=== PATIENT | female | born 1970 | race Caucasian/White ===

== ENCOUNTER 2020-05-10 05:42 | Inpatient (IN) | payer SELFPAY, OTHER ==
--- NOTE | 2020-05-05 08:55 | EKG12_ITS ---
Test Reason : PRE OP Blood Pressure : / mmHG Vent. Rate : 062 BPM Atrial Rate : 062 BPM P-R Int : 140 ms QRS Dur : 088 ms QT Int : 388 ms P-R-T Axes : 000 033 017 degrees QTc Int : 393 ms Normal sinus rhythm Low voltage QRS Borderline ECG Confirmed by ANIYA NELSON, HUAN ([id number]), scientific publications editor VINICIO WHARTON ([id number]) on 05/06/2020 12:24:46 PM Referred By: Raul Gilbert Confirmed By:DAKOTAH KWAN MD
[2020-05-05 10:50] LABS: Hematocrit 39.5 % (37-47); Hemoglobin 12.7 g/dL (12.0-15.0); Mean Corp Hgb Conc 32.2 g/dL (32-36); Mean Corpuscular Hgb 29.3 pg (27.0-32.0); Mean Corpuscular Volume 91.2 fL (81-99); Mean Platelet Vol. 9.4 fl (6.2-12.0); Platelet Count 292 K/mm3 (150-450); RBC Distribution Width CV 13.7 % (11.6-14.6); RBC Distribution Width SD 46.7 fl (35.1-43.9); Red Blood Count 4.33 M/mm3 (4.2-5.4); White Blood Count 5.4 K/mm3 (4.4-11.0)
[2020-05-05 10:56] LABS: Prothrombin Time (Protime)PT. 12.3 SECONDS (11.7-14.9)
[2020-05-05 10:57] LABS: Partial Thromboplast Time 33.2 Seconds (24.1-36.2)
[2020-05-05 11:05] LABS: Internal QC Validated? YES +Cl - CLEAR BKGD; Pregnancy, Serum, hCG Quali. NEGATIVE Negative
[2020-05-05 11:26] LABS: Creatinine, Serum 0.72 mg/dL (0.55-1.02); EST Glomerular Filtration Rate 91 mL/min (>60); Est Glom Filt Rate - Afr Amer 110 mL/min (>60); Thyroid Stim Hormone (TSH) 0.09 uIU/mL (0.358-3.74)
[2020-05-05 13:26] LABS: Magnesium 2.4 mg/dL (1.6-2.6)
--- NOTE | 2020-05-09 20:15 | PCM.HP.BLA ---
History and Physical Date of Admission: 05/10/20 Surgical History and Physical Yoana Chatterjee, a 50 year old female 0 0 0 0 0, presents for SOLO/BS on May 10, 2020 at 10:00. -- Large Uterine Fibroids -- Yoana is here today for concerns regarding uterine fibroids. Patient states that she was seen by her PCP and noted to be having difficulty urinating a couple days prior to menses starting and felt that sx are getting worse. Patient recently had a neck mass and thyroid removed 03/17/2020. Patient is not and states that she never has been sexually active. Fibroids which began 2 years ago. Yoana claims it started gradual and has been present 2 years. It occurs intermittantly. It is located in the na. Yoana characterizes it to be non-radiating. Severity is worsening. Associated signs and symptoms are bloating, stress incontinence. Additional comments are: patient states that prior to starting menses x couple days has difficulty urinating. MEDICATIONS HISTORY: Patient is also takin. levothyroxine 137 mcg tablet, 1 PO QD ALLERGIES: No Known Drug Allergies Infections - Chicken pox Illnesses - thyroid mass Accidents - None Hospitalizations - see surgery only one pap in her 20's; Review of Systems: GENERAL - Denies fever, or chills SKIN - Denies skin changes EYES - Denies visual changes EARS - Denies difficulty hearing NOSE - Denies nasal congestion or bleeding MOUTH - Denies sore throat or difficulty swallowing NECK - Denies pain or swelling RESPIRATORY - Denies shortness of breath or wheezing CARDIOVASCULAR - Denies palpitations or chest pain GASTROINTESTINAL - Denies nausea, vomiting, diarrhea, constipation GENITOURINARY - Denies dysuria, frequency of urination, incontinence of urine MUSCULOSKELETAL - Denies joint or muscle pain NEUROLOGICAL - Denies localized numbness or weakness PSYCHIATRIC - Denies depression or anxiety ENDOCRINE - Denies heat or cold intolerance, weight loss or gain HEMATO-IMMUNOLOGIC - Denies excesive bleeding with cuts SOCIAL HISTORY: Alcohol Use - denies drinking Smoking - denies smoking Diet - no special diet Lifestyle - single Exercise - active Seat Belt Use - always Employer - stays at home Illicit Drug Use - denies use of street drugs Sexual Activity - sexually inactive Residence - lives alone Control - not active FAMILY HISTORY: MENSTRUAL HISTORY: LMP Known?- DefiniteAmount/Duration - 3 days, Regularity - regular, Frequency - monthly days, LMP - 05/02/20, Age Onset Menarche - 13 PAST PREGNANCIES: Total Pregnancies - 0; Full Term Pregnancies - 0; Premature - 0; Abortions, Induced - 0; Abortions, Spontaneous - 0; Ectopics - 0; Multiple Births - 0; Living Children - 0 SURGICAL HISTORY: 1. 03/17/2020 neck mass 2. 03/17/2020 thyroid removed PHYSICAL EXAM BP- 116/72 Sitting, Right arm, regular cuff Weight- 212.52931 lbs Height- 60.5 inch BMI:40.81 CONSTITUTIONAL - NAD, well nourished, and well developed SKIN - No rash, lesions, or ulcers HEENT - Normocephalic, PERRLA, EOMI NECK - No nodes, no nuchal rigidity and thyroid normal size and texture LYMPH NODES - Palpation of lymph nodes in neck and groins within normal limits LUNGS - CTA x2 without wheezes, crackles or rales CARDIAC - Regular rate and rhythm without rubs, murmurs, or gallops ABDOMEN - Without hepatosplenomegaly, distention, masses, rebound, or guarding; normal bowel sounds; no hernias and 18 cm lower pelvic mass noted EXTREMITIES - No edema or calf tenderness NEUROLOGICAL - Cranial nerves II-XII grossly intact PSYCHIATRIC - A and O to time, place, person, mood and affect ASSESSMENT/PLAN: 1. Uterine Leiomyoma Unspec Large and symptomatic. U/S confirms likely fibroid however cannot see ovaries due to large size. Discussed options for treatment and plan to proceed with SOLO/BS. Discussed RBAs and all questions answered.
[2020-05-10] VITALS (14 sets, daily range): BP systolic 109–153; BP diastolic 50–80; PULSE 57–92; RESP 16–18; TEMP 36.2–37.4; O2SAT 93–100; BMI 41.3
--- NOTE | 2020-05-10 | HYST_PTH ---
PATIENT: VIVIAN POP LOC: MS3 U#:[id number] AGE/SX: 50/F ROOM: [facility] [place] RE05/10/[address]: Dr. Raul Gilbert MD : 1970 BED: 1 DIS: 05/11/2020 SPEC #: [id number] RECD: 05/10/20 09:46 STATUS: ALMITA RECandice #: [id number] CONCHITA: 05/10/20 00:[address]: Raul Gilbert DEPT: SURGICAL PATHOLOGY RECD BY: Bob Lamar ENTERED: 05/10/20 09:46 SP TYPE: HYSTERECT OTHR DR: Bonita Tong, RETAIL AND PROMOTIONS COORDINATOR-C Tissues: Uterus, NOS Procedures: Surgery Specimen Level V HEADER OPERATION: Hysterectomy, SOLO, salpingectomy PRE-OP DIAGNOSIS: Uterine leiomyoma TISSUE SUBMITTED: Uterus and bilateral tubes MICROSCOPIC DIAGNOSIS Uterus and bilateral fallopian tubes, total abdominal hysterectomy and bilateral salpingectomy: Cervix - mild chronic inflammation. See comment. Endometrium - proliferative endometrium. Myometrium - intramural and subserosal leiomyomas (largest measuring 8 cm in greatest dimension). Bilateral fallopian tubes - no pathologic diagnosis. SJ:rg 05/11/2020 COMMENT Ectocervix mucosa is not seen in the specimen. MICROSCOPIC DESCRIPTION Slides are reviewed. GROSS DESCRIPTION Received in fixative is one container labeled with the patient's name and designated uterus and bilateral fallopian tubes. The specimen consists of a hysterectomy specimen consisting of uterus with attached bilateral fallopian tubes and detached cervix. The body of the uterus is markedly deformed due to the presence of multiple subserosal nodular masses. The uterus could not be oriented due to distortion of the body of the uterus due to multiple nodules. The uterus with cervix weighs 955 gm. The detached cervix measures 4 x 3 x 1.5 cm. The ectocervical mucosa appears to be absent. The endocervical canal measures 3.5 cm in length. The endocervical mucosa is husain, glistening and unremarkable. The uterus without cervix measures 17 x 15 x 9 cm. The serosal surface is husain, glistening. The triangular endometrial cavity measures 6 cm in length and 2 cm in width. This compresses to one side. The endometrium is husain, glistening without any mass lesion and measures 0.1 cm in thickness. Sections of the uterine wall reveal multiple nodular masses. The largest nodular mass measures 8 cm in greatest dimension. Sections of these masses reveal husain whorled cut surfaces without areas of hemorrhage, necrosis or cystic degeneration. The uninvolved uterine wall measures up to 4 cm in thickness. Sections of the largest nodular also reveal focal degenerative changes. The fallopian tubes measure 7.5 cm in length and 0.6 cm in diameter and 6 cm in length and 0.6 cm in diameter. Due to distorted nature of the uterus, the fallopian tubes could not be oriented. Both fallopian tubes contain fimbrial end. Sections reveal unremarkable cut surfaces. Field Naturalist sections are submitted in 12?cassettes as follows: 1 & 2 - cervix, 3-6 - uterine wall including endometrium, 7 - largest nodular mass, 8 - second largest nodular mass, 9 & 10 - smaller nodular masses, 11 & 12 - bilateral fallopian tubes with each cassette containing one fallopian tube. / DEREK:chadd 05/10/20 TC: 1 CPT: 77086
[2020-05-10 06:31] LABS: Bedside Glucose 84 mg/dL (70-110)
[2020-05-10 06:35] LABS: Internal QC Validated? YES +Cl - CLEAR BKGD; Pregnancy, Urine Negative Negative
[2020-05-10] MEDS: Lactated Ringers 1,000 ML 40 ML IV ×2 (06:56→09:00)
[2020-05-10] MEDS: Gabapentin 600 MG Tablet PO (06:57)
[2020-05-10] MEDS: Acetaminophen 500 MG Tablet 1000 MG PO ×2 (06:57→18:10)
[2020-05-10] MEDS: Cefazolin 2 GM in 0.9% Normal Saline 100 ML IV (07:23)
--- NOTE | 2020-05-10 07:40 | PCM.OPRPT ---
Report of Operation Date of Procedure: 05/10/20 Pre-Operative Diagnosis: Symptomatic Uterine Fibroids Post-Operative Diagnosis: Symptomatic Uterine Fibroids Surgery/Procedure Performed:: Total Abdominal Hysterectomy and Bilateral Salpingectomy Description of Surgical Findings:: 16 cm uterus with normal-appearing fallopian tubes and ovaries production administrator: Kelly Coombs Type of Anesthesia:: General - Endotracheal Anesthesiologist: Lisha Blake Specimen's removed: Uterus and bilateral fallopian tubes Drains: To straight drain Estimated Blood Loss (mL): 100 cc Fluids Replaced: Crystalloid Description of Procedure: Surgeon: Raul Gilbert MD, FACOG Procedure: Total Abdominal Hysterectomy, Bilateral Salpingectomy Findings: 16 cm fibroid uterus with normal appearing fallopian tubes and ovaries Indications: This is a 50-year-old patient who his been having problems with symptomatic uterine fibroids. Given this the patient desires that we proceed with the above procedure. She has been counseled regarding the risk and indications of this procedure including the possibility of bleeding, infection, and injury to surrounding structures such as bowel bladder. All questions were answered. Procedure: Patient was taken to the operating room where after induction of general anesthesia she was prepped and draped in the usual sterile fashion. A Ruby catheter was placed. The abdomen was entered through a Pfannenstiel incision and peritoneal cavity was entered bluntly. Mesosalpinx were ligated x2. Round ligaments were identified and ligated with 0 Vicryl suture. A bladder flap was developed and progressive bites were then taken down on either side of the uterine cervix ligating each pedicle with 0 Vicryl suture. Stryker retractor was then able to be placed. The cervix was bisected and uterus removed with remaining cervical stump present. Further bites were taken along the uterine cervix and final bites across the vaginal cuff incorporated the uterosacral ligaments into the vaginal cuff using 0 Vicryl suture and multiple [id number] sutures were placed across the vaginal cuff. Vaginal cuff and pelvic sidewall pedicles were oversewn where necessary to achieve hemostasis. Peristalsis of the right ureter was noted. Pelvis was copiously irrigated removing all clot. Stryker retractor was removed and rectus abdominis muscles were reapproximated in the midline with interrupted 0 Vicryl suture. 0 PDS strata fix was used to close the fascia in a running fashion and subcutaneous tissue was copiously irrigated with saline solution before closing with 3-0 Vicryl suture. 3-0 Monocryl suture was then used in running fashion to reapproximate skin edges area and Steri-Strips and a Mepilex dressing were placed across the incision. Patient tolerated the procedure well was taken to recovery room in satisfactory condition; sponge instrument and needle counts were all reportedly correct. Estimated blood loss for the case was 100 cc. Ancef 2 g IV was given prior to beginning the operative procedure. There were no apparent complications of the surgery. Specimen to pathology was uterus and bilateral fallopian tubes. Grafts/Implants Used: None - Complications None - Admit VTE Documentation VTE Present on Admission: Yes VTE Mechan Device Prophylaxis: SCD's VTE Pharm Prophylaxis ordered?: Yes
--- NOTE | 2020-05-10 07:43 | PCM.DC.AHY ---
Discharge Diet: No Restrictions Discharge Activity: Return to Normal Activity - do what you feel comfortable, but do not over do it. You may climb stairs, just use caution and hold the railing., May Not Drive - for a few days or while taking narcotic pain medications., May Shower, May Take a Tub Bath May resume sexual activity in: 6 weeks - nothing in the vagina. Lifting Restrictions: 25 pounds for 6 weeks. Call your doctor if your incision/area has: Continuous Slow Oozing, Sudden Increased Bleeding, Increased Pain/ Swelling, Increased Redness, Foul Smelling Discharge Call your doctor if you observe: Fever of 101 or Higher, Inability to urinate, Inability to have a bowel movement, Using more than one pad per hour, - - Some vaginal bleeding may be noted for up to 4-8 weeks. Cleanse incision/area with: - - Let the soapy water run over your incision, rinse and pat dry. Additional Dressing/Incision Instructions:: The white strips (Steri Strips) on your incision will fall off on their own. Allergies/Adverse Reactions: Allergies No Known Allergies Allergy (Verified 05/10/20 06:39) Medications to take at Discharge Ascorbic Acid [Vitamin C] 2,000 mg PO DAILY 05/03/20 Aspirin [Adult Aspirin Regimen] 81 mg PO DAILY 05/03/20 Black Strap Molasses 5 ml PO DAILY 05/03/20 Calcium (Elemental) [Os-Edmund 500] 1,000 mg PO BID 05/03/20 Calcium Carbonate 600 mg PO BID 05/03/20 Chlorophyllin Copper Complex [Nullo] 100 mg PO DAILY 05/03/20 Levothyroxine [Synthroid] 137 mcg PO DAILY 05/03/20 Magnesium 400 mg PO BID 05/03/20 Minerals 5 ml PO DAILY 05/03/20 [place]-3 Fatty Acids/Fish Oil [[place] 3 1,000 mg Softgel] 2 each PO BID 05/03/20 Restorative Mvi 1 tablet PO DAILY 05/03/20 Slippery Elm 2 tablet PO BID 05/03/20 Ubidecarenone [Co Q-10] 60 mg PO DAILY 05/03/20 Docusate Sodium [Colace] 100 mg PO BID PRN PRN #60 capsule 05/10/20 Oxycodone [Oxyir] 5 mg PO Q6H PRN PRN 7 Days #14 tablet 05/10/20 The following prescriptions were given: Docusate Sodium [Colace] 100 mg PO BID PRN PRN #60 capsule PRN Reason: Constipation Transmission Status: Pending to [facility] Oxycodone [Oxyir] 5 mg PO Q6H PRN PRN 7 Days #14 tablet PRN Reason: Pain Score 6-10 Transmission Status: Sent to [facility] Orders to be completed after discharge: Magnesium Time Frame: 05/05/20, Facility: [facility], Location: Laboratory Primary Care Physician: Bonita Tong DEVELOPMENTAL MATHEMATICS INSTRUCTOR, DEVELOPMENTAL MATHEMATICS INSTRUCTOR-C [Primary Care Provider] - Test Results: Test results from this visit will be discussed in further detail at your follow-up appointment, if applicable. Please Follow Up With: Raul Gilbert MD - [phone] When: in 2 weeks, please call to make an appointment.
[2020-05-10] MEDS: Ondansetron 4 MG/2 ML Vial IV (09:31)
[2020-05-10] MEDS: Ketorolac 30 MG/ML Syringe IV ×2 (13:22→18:17)
[2020-05-10] MEDS: 0.9% Saline Lock 10 ML Syringe IV ×2 (13:22→18:09)
[2020-05-10] MEDS: Lactated Ringers 1,000 ML 150 ML IV (18:09)
[2020-05-10] MEDS: Docusate Sodium 100 MG Capsule PO (20:53)
[2020-05-10] MEDS: oxyCODONE 5 MG Tablet PO (20:54)
[2020-05-11] MEDS: Lactated Ringers 1,000 ML 150 ML IV (00:04)
[2020-05-11] MEDS: Acetaminophen 500 MG Tablet 1000 MG PO ×3 (00:05→11:58)
[2020-05-11] MEDS: 0.9% Saline Lock 10 ML Syringe IV ×3 (00:06→11:59)
[2020-05-11] MEDS: Ketorolac 30 MG/ML Syringe IV ×3 (00:06→12:03)
[2020-05-11 04:00] VITALS: BP 114/51; PULSE 72; RESP 16; TEMP 37.1; O2SAT 96
[2020-05-11] MEDS: Levothyroxine 137 MCG Tablet PO (05:22)
[2020-05-11 05:43] LABS: Hematocrit 32.6 % (37-47); Hemoglobin 10.6 g/dL (12.0-15.0); Mean Corp Hgb Conc 32.5 g/dL (32-36); Mean Corpuscular Hgb 29.7 pg (27.0-32.0); Mean Corpuscular Volume 91.3 fL (81-99); Mean Platelet Vol. 9.2 fl (6.2-12.0); Platelet Count 274 K/mm3 (150-450); RBC Distribution Width CV 13.9 % (11.6-14.6); RBC Distribution Width SD 47.6 fl (35.1-43.9); Red Blood Count 3.57 M/mm3 (4.2-5.4); White Blood Count 12.7 K/mm3 (4.4-11.0)
[2020-05-11 05:55] LABS: Creatinine, Serum 0.78 mg/dL (0.55-1.02); EST Glomerular Filtration Rate 83 mL/min (>60); Est Glom Filt Rate - Afr Amer 101 mL/min (>60); Estimated Creatinine Clearance 65.11 ml/min
[2020-05-11 07:26] VITALS: O2SAT 96
[2020-05-11] MEDS: Docusate Sodium 100 MG Capsule PO (07:33)
--- NOTE | 2020-05-11 08:27 | PN.OBGYN_ITS ---
Subjective: Patient without complaints. Tolerating diet. Denies flatus. Ruby catheter is still in. Minimal pain reported and no vaginal bleeding. Objective: Mepilex dressing is clean, dry, without staining. Good urine output. Hemoglobin and creatinine okay. - Physical Exam Vitals/I&O's: Vital Signs Temp Pulse Resp BP Pulse Ox 98.8 F 72 16 114/51 L 96 05/11/20 04:00 05/11/20 04:00 05/11/20 04:00 05/11/20 04:00 05/11/20 04:00 Oxygen Flow Rate (L/min) 6 Oxygen Delivery Method Room Air Weight: 218 lb 7.649 oz Body Mass Index (BMI) 41.3 Intake and Output for Last 24 Hours 05/09/20 05/10/20 05/11/20 23:59 23:59 23:59 Intake Total 2991.5 / 2991.5 2210.0 / 2210.0 Output Total 2225 / 2225 1400 / 1400 Balance 766.5 / 766.5 810.0 / 810.0 Laboratory Results 05/11/20 05:26: WBC 12.7 H, RBC 3.57 L, Hgb 10.6 L, Hct 32.6 L, MCV 91.3, MCH 29.7, MCHC 32.5, RDW Std Deviation 47.6 H, RDW Coeff of Antonio 13.9, Plt Count 274, MPV 9.2 05/11/20 05:26: Creatinine 0.78, Estim Creat Clear Calc 65.11, Est GFR (MDRD) Af Amer 101, Est GFR (MDRD) Non-Af 83 Current Medications Acetaminophen (Acetaminophen 500 Mg Tablet) 1,000 mg PO Q6 [facility] Last Admin: 05/11/20 06:40 Dose: 1,000 mg Documented by: Docusate Sodium (Docusate Sodium 100 Mg Capsule) 100 mg PO BID [facility] Last Admin: 05/11/20 07:33 Dose: 100 mg Documented by: Enoxaparin Sodium (Enoxaparin 40 Mg/0.4 Ml Syringe) 40 mg SC DAILY [facility] Ketorolac Tromethamine (Ketorolac 30 Mg/Ml Syringe) 30 mg IV Q6 [facility] Stop: 05/11/20 18:01 Last Admin: 05/11/20 05:23 Dose: 30 mg Documented by: Levothyroxine Sodium (Levothyroxine 137 Mcg Tablet) 137 mcg PO DAILY@0600 [facility] Last Admin: 05/11/20 05:22 Dose: 137 mcg Documented by: Magnesium Chloride (Magnesium Chloride 64 Mg Delay Rel.Tablet) 128 mg PO DAILY PRN PRN PRN Reason: Constipation Nutritional Formula (Lactose Free) (Ensure Enlive 120 Ml Liquid) 120 ml PO TIDCM [facility] Last Admin: 05/11/20 07:33 Dose: 120 ml Documented by: Ondansetron HCl (Ondansetron Odt 4 Mg Tablet) 4 mg PO Q6H PRN PRN PRN Reason: NAUSEA Oxycodone HCl (Oxycodone 5 Mg Tablet) 5 - 10 mg PO Q4H PRN PRN PRN Reason: Pain Score 4-10 Last Admin: 05/10/20 20:54 Dose: 5 mg Documented by: Sodium Chloride (0.9% Saline Lock 10 Ml Syringe) 10 - 40 ml IV UD PRN PRN Reason: SALINE FLUSH Last Admin: 05/11/20 05:22 Dose: 10 ml Documented by: Medical Necessity - Tobacco Use Smoking Status: Never smoker Assessment/Plan Doing well postoperative day #1 status post total abdominal hysterectomy and bilateral salpingectomy. Patient desires going home today if possible. Home- going instructions given. Will release this afternoon if able to void on own after Ruby catheter is discontinued and if still tolerating diet well.
--- NOTE | 2020-05-11 09:20 | CASEMGMT ---
RN BART Face to Face with patient for initial transition planning/care coordination assessment. RN CM introduced self and role at [facility]. Patient sitting in chair, alert and oriented. Patient willing to participate in assessment and is able to answer all questions appropriately. Care providers, pharmacy, and demographics verified. Patient wishes to discharge home, denies need for home health at this time. Patient states she has no further needs or concerns at this time. CM to follow for discharge planning needs that may arise. PCP: BRUNILDA Tong Specialists: MARIIA Gilbert Preferred Pharmacy: [facility] [place] [facility] [place]: [place] Living Will/HPOA: none LNOK: sister Living Arrangements: Patient lives alone in a single story home with no steps to enter the home. Patient states she is independent at home. Transportation: Driving service DME/HHC: Patient denies DME or previous HHC. Disposition Plan: Patient to discharge home with family support and follow-up plans in place. Roewna BARRETT, RN, CM
[2020-05-11 09:47] VITALS: BP 94/51; PULSE 67; RESP 16; TEMP 36.3; O2SAT 97
[2020-05-11] MEDS: Enoxaparin 40 MG/0.4 ML Syringe SC (09:53)
[2020-05-11] MEDS: Magnesium Chloride 64 MG Delay Rel.Tablet 128 MG PO (10:04)
[2020-05-11 12:00] VITALS: BP 116/57; PULSE 60; RESP 14; TEMP 36.7; O2SAT 97
== END 2020-05-11 14:08 | disposition home or self-care (01) | DRG 742 ==
LOC: ACINP 05:45 → MS3 07:59
PROVIDERS: Anesthesiology; Admitting Provider Obstetrics & Gynecology; PCP Nurse Practitioner Family; Referring Provider Obstetrics & Gynecology; Visit Provider Obstetrics & Gynecology
PROC: 0UT90ZZ Resection of Uterus, Open Approach (ICD-10-PCS; CPT 58150; principal; 2020-05-10 07:10)
DX: D25.2 Subserosal leiomyoma of uterus (principal); Z68.41 Body mass index [BMI] 40.0-44.9, adult; D25.1 Intramural leiomyoma of uterus; E66.01 Morbid (severe) obesity due to excess calories; Z20.828 Contact with and (suspected) exposure to other viral communicable diseases
CPT/HCPCS: 36415; 81025; 82565; 82962; 83735; 84443; 84703; 85027; 85610; 85730; 86850; 86900; 86901; 87426; 88307; 93005; C9803; J7120; A4216; J2405